=== PATIENT | male | born 1940 | race Caucasian/White ===

== ENCOUNTER 2018-10-28 09:21 | Emergency (ER) | payer MEDICARE, OTHER ==
[~2018-10-28] VITALS: Ht 185.4 cm; Wt 109.0 kg
[~2018-10-28 09:21] MED LIST: ALLOPURINOL100 MG PO; AMLODIPINE5 MG PO; CARVEDILOL25 MG PO; CITALOPRAM20 MG PO; CLOPIDOGREL75 MG PO; INDOCIN50 MG/CAP PO; LANTUS100 MG/ML SC; LISINOPRIL10 MG PO; LORTAB 5-325 MG1 TAB PO; LOSARTAN/HCT1 TA2 PO; OMEGA-3 FISH1000 MG PO; PROBENECID/COLC1 TAB PO
[2018-10-28] MEDS ORDERED: VOLTAREN1%GEL TOP (09:51)
[2018-10-28 10:18] VITALS: BP 136/93
== END 2018-10-28 10:18 | disposition home or self-care (01) ==
LOC: ED 09:21
DX: M25.562 Pain in left knee (principal); M17.12 Unilateral primary osteoarthritis, left knee

== ENCOUNTER 2018-12-02 09:27 | Emergency (ER) | payer MEDICARE, OTHER ==
[~2018-12-02] VITALS: Ht 185.4 cm; Wt 105.0 kg
[~2018-12-02 09:27] MED LIST changes: +VOLTAREN1%GEL TOP
[2018-12-02 10:16] LABS: HEMATOCRIT 45.6 % (39.0-50.0); HEMOGLOBIN 15.6 g/dl (14.0-18.0); IMMATURE GRANULOCYTES 0.5 % (0.0-5.0); MEAN CELL VOLUME 90.8 fL CALC (80.0-100.0); MEAN CORPUSCULAR HGB 31.1 pG CALC (26.0-32.0); MEAN CORPUSCULAR HGB CONC 34.2 g/L CALC (32.0-36.0); NEUT# 10.05 thou/uL (1.82-7.42); RED BLOOD COUNT 5.02 mill/uL (4.70-6.10); RED CELL DISTRI WIDTH 13.4 % (11.5-15.5)
[2018-12-02 10:28] LABS: ANION GAP 17 (6-22 (CALC)); BUN 23 mg/dL (8-23); BUN/CREATININE RATIO 26 (12-20 (CALC)); C-REACTIVE PROTEIN 7.7 mg/dL (0-0.9); CARBON DIOXIDE 23 mmol/l (22-30); CHLORIDE 100 mmol/l (95-108); CREATININE 0.9 mg/dL (0.7-1.3); GFR > 60 ML/MIN (>=60 (CALC)); GFR FOR AFR.AMER. > 60 ML/MIN (>=60 (CALC))
[2018-12-02 10:29] LABS: SODIUM 136 mmol/l (137-146)
[2018-12-02] MEDS ORDERED: CITALOPRAM40 MG PO (11:27)
[2018-12-02] MEDS ORDERED: LOSARTAN POT50 MG PO (11:34)
[2018-12-02] MEDS ORDERED: NOVOLIN N100 UNIT/1 SC (11:38)
[2018-12-02] MEDS ORDERED: TRESIBA FL200 UNIT/M SC (11:38)
[2018-12-02] MEDS ORDERED: COLCHICINE0.6 M2 PO ×2 (11:39)
[2018-12-02 11:48] VITALS: BP 137/95
== END 2018-12-02 11:48 | disposition home or self-care (01) ==
LOC: ED 09:27
PROVIDERS: Family Medicine
DX: M25.562 Pain in left knee (principal); E11.9 Type 2 diabetes mellitus without complications; I10 Essential (primary) hypertension; E78.00 Pure hypercholesterolemia, unspecified; M10.9 Gout, unspecified

== ENCOUNTER 2019-01-03 15:37 | Inpatient (IN) | payer MEDICARE, OTHER ==
[~2019-01-03] VITALS: Ht 185.4 cm; Wt 106.6 kg
[~2019-01-03 15:37] MED LIST changes: +CELEXA20 MG PO; +CITALOPRAM40 MG PO; +COLCHICINE0.6 M2 PO; +COREG12.5 MG PO; +LOSARTAN POT50 MG PO; +NOVOLIN N100 UNIT/1 SC; +TRESIBA FL200 UNIT/M SC; +VICTOZA18 MG/3 ML SC
[2019-01-10] VITALS (8 sets, daily range): BP systolic 115–140; BP diastolic 68–78
--- NOTE | 2019-01-10 14:45 | NUR ---
PT CAME FROM [place] VIA BED BY ALEXX. REPORT RECEIVED FROM HER. PT IS DROWSY. IN ROOM. IVF INFUSING WELL. PLASTIC MANAGER IN ROOM TO OBTAIN VS. CALL LIGHT IN REACH.
--- NOTE | 2019-01-10 15:04 | NUR ---
ASSESSMENT PART A ASSISTED WITH QUESTIONS DUE TO PT FEELS DROWSY. PT ABLE TO OPEN EYES. PT STATED PAIN IN LEFT KNEE /. LEFT KNEE DRESSING CDI . LEFT LEG ELEVATED. SCD IN PLACE. ENCOURAGE IS. SAFETY PRECAUTIONS REINFORCED AND CALL LIGHT IN REACH.
--- NOTE | 2019-01-10 19:30 | NUR ---
PATIENT RESTING IN BED AT THIS TIME WITH O2 VIA NASAL CANNULA IN PLACE. PATIENT IS AWAKE ALERT AND ORIENTEDX3. IV SITE TO LEFT WRIST INTACT WITH IVF LR PATENT AND INFUSING AT 100CC/HR. SITE APPEARS HEALTHY. ANCEF HUNG ORDERED. LEFT KNEE DRESSING INTACT AND SECURED WITH HALLE WRAP. SLIGHT LLE SWELLING. PEDAL PULSES PALPABLE. SCD IN PLACE. ENCOURAGED USE OF IS Q1H WHILE AWAKE. PATIENT IS ABLE TO DEMONSTRATE PROPER USE OF THE DEVICE. ABDIS DISTENDED BUT SOFT. BS ARE PRESENT. UNABLE TO VOID AT THIS TIME. USING ICE PACK TO LEFT KNEE ON AND OFF WITH SKIN INSPECTION. SAFETY PRECAUTIONS REINFORCED.CALL LIGHT IN REACH. WILL CONT TO MONITOR.
[2019-01-11] VITALS (7 sets, daily range): BP systolic 103–164; BP diastolic 65–96
--- NOTE | 2019-01-11 00:17 | NUR ---
PATIENT RESTING IN BED. VOIDED 150CC OF BLANCA URINE IN URINAL-STILL FEELS FULL AND IS DISTENDED-BLADDER SCAN FOR >999. #16 BENGALI MEJIA CATH INSERTED WITHOUT ANY DIFFICULTY AND DRAINING LARGE AMT OF YELLOW URINE. CLAMPED FOR 20MIN AND THEN RELEASED. PATIENT TURNED AND REPOSIONED. LEFT KNEE DRESSING REMAINS INTACT AND SECURED WITH HALLE WRAP. HOME C-PAP IN PLACE. PATIENT STATES RELIEF AFTER CATH PLACED. SAFETY PRECAUTIONS REINFORCED.CALL LIGHT IN REACH. WILL CONT TO MONITOR.
--- NOTE | 2019-01-11 04:00 | NUR ---
PATIENT RESTING IN BED WITH C-PAP IN PLACE. RESP ARE EVEN AND UNLABORED. IVF PATENT AND INFUSING VIA LEFT WRIST. SITE REMAINS HEALTHY AT THIS TIME. MEJIA CATH PATENT AND DRAINING YELLOW URINE. DRESSING TO LEFT KNEE REMAINS INTACT AND SECURED WITH HALLE WRAP. CALL LIGHT IN REACH. WILL CONT TO MONITOR.
[2019-01-11 05:18] LABS: HEMOGLOBIN 13.5 g/dl (14.0-18.0)
--- NOTE | 2019-01-11 07:00 | NUR ---
REPORT RECEIVED FROM DAREK. PT IS RESTING IN BED WITH NO S/S OF DISTRESS OR NEEDS AT THIS TIME. CALL LIGHT IN REACH.
--- NOTE | 2019-01-11 07:21 | NUR ---
MEDICATED PT WITH PERCOCET FOR PAIN LEFT KNEE 05/09 SEE EMAR. LEFT KNEE WARM TO THE TOUCH. LEFT KNEE DRESSING CDI. ICE PACK IN PLACE. ASSESSMENT DONE. ENCOURAGE IS. PT IS A&O X3. RESPS EVEN AND UNLABORED. O2L/M VIA NC. SAFETY PRECAUTIONS REINFORCED AND CALL LIGHT IN REACH.
--- NOTE | 2019-01-11 11:26 | NUR ---
DR. MCKEON AT [facility] TO ASSESS PT. NOTIFIED THAT PT BP WAS 153/86. MD STATED WILL REVIEW MEDS. IN ROOM AND CALL LIGHT IN REACH.
--- NOTE | 2019-01-11 14:18 | NUR ---
Pt resting in bed with family visiting, he had pain meds approx 20 min ago. Pt performed ther ex in bed to LLE with assist. He was initially in bed with pillows under knee and knee flexed approx 60 degrees. Pt was instructed in proper positioning and to change knee position often. Pt moved supine to sit with min/mod assist monie with LLE. Pt stood with min assist and ambulated with RW x 25' with CGA/min assist and vc for proper stepping. Pt positioned in recliner with legs elevated. Tray and phone in reach, present during treatment and nursing aware.
--- NOTE | 2019-01-11 15:00 | NUR ---
NOTIFIED DR. MCKEON RE: @1138 PT BP 164/96. STATED STILL HAS TO REVIEW CASE.
--- NOTE | 2019-01-11 16:00 | NUR ---
PT RESTING IN BED LEFT LEG ELEVATED. PT STATED PAIN IN LEG IS 4/10 BUT DENIES PAIN MEDICATION. IN ROOM. CALL LIGHT IN REACH.
--- NOTE | 2019-01-11 16:05 | NUR ---
PRUINE JIUCE GIVEN TO PT. IN ROOM. NOTIFIED THAT PT HAS NOT HAD A BM FOR A FEW DAYS. STATED WILL REVIEW.
--- NOTE | 2019-01-11 19:30 | NUR ---
PATIENT RESTING IN BED-AWAKE ALERT AND ORIENTEDX3. PATIENT C/O POST-OP LEFT KNEE PAIN. PATIENT MEDICATED WITH PERCOCET TABS 2. PATIENT WITH SALINE LOCK TO LEFT WRIST INTACT AND APPEARS HEALTHY AT THIS TIME. DRESSING TO LEFT KNEE INTACT-SECURED WITH HALLE WRAP. CMS TO LEFT TOES WNL. PATIENT ENCOURAGED USE OF IS Q1H WHILE AWAKE-ABLE TO DEMONSTRATE PROPER USE OF THE DEVICE. MEJIA CATH PATENT AND DRAINING BLANCA URINE0-SECURED TO RIGHT THIGH. SCD IN PLACE. ICE PACK TO LEFT KNEE ON AND OFF WITH FREQUENT SKIN INSPECTIONS. SAFETY PRECAUTIONS REINFORCED. CALL LIGHT IN REACH. WILL CONT TO MONITOR.
[2019-01-12] VITALS: BP 112/68
--- NOTE | 2019-01-12 04:00 | NUR ---
PATIENT RESTING IN BED WITH HOB ELEVATED AND C-PAP IN PLACE. RESP ARE EVEN AND UNLABORED. MEJIA PATENT AND DRAINING BLANCA URINE. DRESSING TO LEFT KNEE IS INTACT SECURED WITH HALLE WRAP. CALL LIGHT IN REACH. WILL CONT TO MONITOR.
[2019-01-12 05:01] VITALS: BP 112/69
[2019-01-12 05:55] LABS: HEMATOCRIT 37.3 % (39.0-50.0); HEMOGLOBIN 12.6 g/dl (14.0-18.0); IMMATURE GRANULOCYTES 0.5 % (0.0-5.0); MEAN CELL VOLUME 91.4 fL CALC (80.0-100.0); MEAN CORPUSCULAR HGB 30.9 pG CALC (26.0-32.0); MEAN CORPUSCULAR HGB CONC 33.8 g/L CALC (32.0-36.0); NEUT# 6.64 thou/uL (1.82-7.42); RED BLOOD COUNT 4.08 mill/uL (4.70-6.10); RED CELL DISTRI WIDTH 13.7 % (11.5-15.5)
[2019-01-12 06:17] LABS: ALKALINE PHOSPHATASE 68 u/l (38-126); AMYLASE 88 u/l (30-110); ANION GAP 12 (6-22 (CALC)); BILIRUBIN, TOTAL 1.5 mg/dL (0.0-1.4); BUN 20 mg/dL (8-23); BUN/CREATININE RATIO 18 (12-20 (CALC)); CARBON DIOXIDE 27 mmol/l (22-30); CHLORIDE 100 mmol/l (95-108); CREATININE 1.1 mg/dL (0.7-1.3); GFR > 60 ML/MIN (>=60 (CALC)); GFR FOR AFR.AMER. > 60 ML/MIN (>=60 (CALC)); LIPASE 386 u/l (23-300); MAGNESIUM 1.1 mg/dL (1.6-2.3); POTASSIUM 3.9 mmol/l (3.5-5.1); SGOT/AST 16 u/l (19-48); SODIUM 136 mmol/l (137-146)
[2019-01-12 06:19] LABS: ALBUMIN 3.3 g/dL (3.2-5.0); TOTAL PROTEIN 5.7 g/dL (6.3-8.2)
--- NOTE | 2019-01-12 07:33 | NUR ---
SHIFT REPORT, PT AWAKE AND ALERT SITTING UP IN BED, C/O PAIN TO LEFT KNEE @ 7/10, DRESSING TO KNEE IN PLACE AND CDI, MEJIA CATHETER IN PLACE WITH BLANCA URINE, CALL DUARTE IN REACH.
[2019-01-12 08:49] VITALS: BP 134/77
--- NOTE | 2019-01-12 11:18 | NUR ---
SITTING UP IN RECLINER, STATES PAIN TO L.KNEE HAS SUBSIDED, PT IS DIAPHORETIC AT THIS TIME, BG MEASURED = 154, NO FEVER OBSERVED, NO C/O DISCOMFORT, WILL CONTINUE TO MONITOR, SPOUSE VISITING.
--- NOTE | 2019-01-12 12:45 | NUR ---
PATIENT IN BED WITH BED POSITIONED IN HIP/KNEE FLXN. ONLY ABLE TO PERFORM ANKLE PUMPS ACTIVELY. PROM OF LEFT KNEE 40-50 DEGREES IN SUPINE. MAX A AT L LE FOR SUPINE TO SIT. SITTING KNEE FLXN PASSIVELY 35-70 DEGREES GROSSLY. SIT TO STAND TO WALKER WITH MOD A FOR GT BED TO CHAIR WITH MOD A. ABLE TO LIFT L FOOT OFF OF FLOOR TODAY, BUT REQUIRED CONSTANT V.C.'S FOR SAFETY AND SEQUENCING. AMB 4 FEET TO CHAIR, SLOWLY WITH WBAT L LE. STAND TO SIT IN RECLINER WITH MIN A AND V.C.'S. HE WAS UNABLE TO LOWER HIMSELF SLOWLY AND PLOPPED INTO CHAIR. RESUMED PROM AND ATTEMPTING QUAD SET AGAIN WITH CHAIR RECLINED. PATIENT WITHOUT SIGNIFICANT QUAD SET AND UNABLE TO PERFORM EVEN AAROM. CALL DUARTE AND TRAY TABLE WITHIN REACH. DEMONSTRATED PROPER TRANSFER TECHNIQUES WITH L LE FORWARD TO DECREASE PAIN DURING SIT TO/FROM STAND.
--- NOTE | 2019-01-12 12:52 | NUR ---
SITTING UP IN RECLINER AT THIS TIME, DR LINDA HENDERSON, KEN TO KEEP 1 MORE NIGHT THEN D/C TO REHAB TOMORROW, ALSO UROLOGY CONSULT FOR URINARY RETENTION.
--- NOTE | 2019-01-12 14:06 | NUR ---
Pt reported being OOB in chair since this am and was tried. Sitting knee exercise with A/AAROM and passive HS stretch done (gentle). Pt required max assist ot stand from chair, he had difficulty scooting forward in chair and did not lean forward with trunk to stand. Pt ambulated with RW x 25 with mod assist, he was slightly retropulsive and use step two gait pattern.Pt return to bed and was positioned correctly. Knee flexion ext remains decrease, flexion approx 70 in sitting. Pt left with call vicente/tray in place and SCD on. Pt in room.
[2019-01-12 16:00] VITALS: BP 142/90
--- NOTE | 2019-01-12 16:00 | NUR ---
RESTING IN BED AT THIS TIME, DENY PAIN, WILL CONTINUE TO MONITOR.
[2019-01-12 19:10] VITALS: BP 146/85
--- NOTE | 2019-01-12 20:19 | NUR ---
PT MEDICATED ORDERS PROVIDE. PT LOC TO SELF, AND STATES THAT HE IS IN THE HOSPITAL, BUT APPEARS TO BE SLIGHTLY CONFUSED ABOUT TIME/CIRCUMSTANCES. HE KEEPS ASKING WHERE HIS IS. WE EXPLAIN SHE HAS LEFT AND HE ASKS AGAIN, "HAVE YOU SEEN MY ." BED ALARM ON, WILL CONTINUE TO MONITOR. MEJIA CATHETER IN PLACE PATENT DRAINING BLOOD TINGED URINE. PT DENIES PAIN, SOB, NO S/O DISTRESS AT THIS TIME. CALL LIGHT AT SIDE.
--- NOTE | 2019-01-13 00:25 | NUR ---
PT.IS IN BED AWAKE, NO S/O DISTRESS AT THIS TIME. CALL LIGHT AT SIDE. BED ALARM ON.
[2019-01-13 04:03] VITALS: BP 138/84
--- NOTE | 2019-01-13 04:40 | NUR ---
PT C/O NAUSEA. REFUSED IV SITE FOR ZOFRAN ADMINISTRATION. WILL CONSULT PHYSICIAN FOR PO ZOFRAN. PT PROVIDED EMESIS BAG, REPOSITIONED AND KNEE ICED W/ICE PACKS. DENIES ANY OTHER NEEDS AT THIS TIME. C/O PAIN 03/09, BUT REFUSED PAIN PILL DUE TO NAUSEA. WILL CONTINUE TO MONITOR. CALL LIGHT AT SIDE.
[2019-01-13 05:56] LABS: HEMATOCRIT 32.4 % (39.0-50.0); HEMOGLOBIN 11.3 g/dl (14.0-18.0); IMMATURE GRANULOCYTES 0.4 % (0.0-5.0); MEAN CELL VOLUME 88.5 fL CALC (80.0-100.0); MEAN CORPUSCULAR HGB 30.9 pG CALC (26.0-32.0); MEAN CORPUSCULAR HGB CONC 34.9 g/L CALC (32.0-36.0); NEUT# 7.64 thou/uL (1.82-7.42); RED BLOOD COUNT 3.66 mill/uL (4.70-6.10); RED CELL DISTRI WIDTH 13.4 % (11.5-15.5)
[2019-01-13 06:12] LABS: ALKALINE PHOSPHATASE 67 u/l (38-126); ANION GAP 15 (6-22 (CALC)); BILIRUBIN, TOTAL 1.3 mg/dL (0.0-1.4); BUN 18 mg/dL (8-23); BUN/CREATININE RATIO 21 (12-20 (CALC)); CARBON DIOXIDE 23 mmol/l (22-30); CHLORIDE 100 mmol/l (95-108); CREATININE 0.9 mg/dL (0.7-1.3); GFR > 60 ML/MIN (>=60 (CALC)); GFR FOR AFR.AMER. > 60 ML/MIN (>=60 (CALC)); MAGNESIUM 1.1 mg/dL (1.6-2.3); POTASSIUM 3.7 mmol/l (3.5-5.1); SGOT/AST 17 u/l (19-48); SODIUM 134 mmol/l (137-146); TOTAL PROTEIN 5.5 g/dL (6.3-8.2)
[2019-01-13 07:49] VITALS: BP 168/89
--- NOTE | 2019-01-13 07:55 | NUR ---
MEDICATED PT WITH PERCOCET SEE EMAR. ASSESSMENT DONE. REPS EVEN AND UNLABORED. PT HAS NO IV SITE . LEFT LEG IS WARM TO THE TOUCH. MEJIA IS PATENT WITH BLANCA URINE. DISCUSS POC WITH PT AND . CALL LIGHT IN REACH.
--- NOTE | 2019-01-13 09:53 | NUR ---
PATIENT STATES THAT HIS RIGHT LEG IS SORE TODAY (NONO-SURGICAL LE). HE HAS BEEN TRYING TO WORK HIS LEFT KNEE ROM AND WAS UP IN THE CHAIR FOR 5 HOURS YESTERDAY. SIT TO STAND UNSUCCESSFUL X 2 WITH A OF 1. BED RAISED ANAD MOD A OF 2 FOR SIT TO STAND TO RW. ABLE TO AMB BED TO BSC WITH CGA OF 2 AND MIN A AT L LE TO MAINTAIN LESS WB'G WITH TRANSFERS. BSC TO STAND WITH MOD A OF 1 AND AMB 16 FEET WITH CGA AND V.C.'S FOR FOOT PLACEMENT. STAND TO SIT WITH MIN A AT L LE FOR CONTROLLED DECREASE OF WB'G WITH IMPROVED GRADED CONTROL. PROM, AAROM AND AROM OF L KNEE. PROM 20 TO 65, AROM 35 TO 55 DEGREES. CALL DUARTE AND TRAY TABLE WITHIN REACH.
--- NOTE | 2019-01-13 11:59 | NUR ---
PT IS EATING HIS LUNCH. PT STATED PAIN NOW ON HIS LEG KNEE 03/09 BUT DENIES PAIN MEDICATION AT THIS TIME. IN ROOM. CALL LIGHT IN REACH.
--- NOTE | 2019-01-13 16:00 | NUR ---
PT IS SITTING IN RECLINER . PT DENIES NEEDS AT THIS TIME. IN ROOM AND CALL LIGHT IN REACH.
--- NOTE | 2019-01-13 16:33 | NUR ---
Therapeutc Exercise and gait traing focus of therapy session. Enterd Mr. Garza room w/ patient supine in bed. Pt. unable to get knee extension w/ quad setting. VC to keep pushing knee to bed. Active Assisted ROM for heel slides w/ towel held by patient, Therapist (Max A). Supine to sit (Max A.) to swing legs off of bedside. Sit to stand (Mod A) ambulated from bedside to chair (Min A). Stand to sit (Mod A) w/ VC for proper techique to retro walk to [facility], proper hand placement as pt. descends to a seated position. Exited room w/ patient reclined in chair, pillow behind head and leg rest open, tray table and call light placed within patient reach. Nurse informed of therapy.
[2019-01-13 17:14] VITALS: BP 124/78
[2019-01-13 19:00] VITALS: BP 113/65
--- NOTE | 2019-01-13 19:45 | NUR ---
REPORT GIVEN BY KAREN MCCONNELL. PATIENT AWAKE IN BED. RESP EVEN AND UNLABORED. NO S/S DISTRESS NOTED. DRESSING INTACT. PLAN OF CARE DISCUSSED. PATIENT INFORMED TO CALL WITH ANY QUESTIONS OR CONCERNS. ASSESSMENT COMPLETE.
--- NOTE | 2019-01-13 22:02 | NUR ---
PATIENT ASKED TO USE BSC.FOR HIS SAFTEY WE USED THE BEDPAN. PATIENT STATES THAT THE BEDPAN ISN'T WORKING FOR HIM. WHEN ASKED IF HE CAN SUPPORT HIS WEIGHT WITH HIS GOOD LEG HE STATED THAT HE CAN'T, FOR THE SAFTEY OF THE PATIENT AND STAFF WE WILL CONTIUNE TO TRY TO USE THE BEDPAN.
--- NOTE | 2019-01-13 23:43 | NUR ---
PATIENT HAS NO IV SITE. PATIENT CURRENTLY REFUSING TO HAVE A NEW IV STARTED.
--- NOTE | 2019-01-13 23:46 | NUR ---
PATIENT RESTING WITH EYES CLOSED. RESP EVEN AND UNABLORED. NO S/S OF DISTRESS NOTED.
--- NOTE | 2019-01-14 03:59 | NUR ---
PATIENT RESTING WITH EYES CLOSED. RESP EVEN AND UNLABORED. NO S/S OF DISTRESS NOTED
[2019-01-14 04:23] VITALS: BP 141/85
--- NOTE | 2019-01-14 07:33 | NUR ---
SHIFT CHANGE REPORT, PT AWAKE ALERT AND ORIENTED SITTING UP IN BED WATCHING TV, DENIES PAIN AT THIS TIME, MEJIA IN PLACE WITH BLANCA URINE, CALL DUARTE IN REACH.
[2019-01-14 07:36] VITALS: BP 127/77
[2019-01-14 09:34] VITALS: BP 127/77
--- NOTE | 2019-01-14 11:02 | NUR ---
Pt in bed with nursing present, he just got pain meds. AAROM to BLEs done. Pt reported R knee was bad with pain reported. Knee ext on L in supine after gentle stretch approx -15 degrees. Knee flex/ext in sitting on edge of bed, flexion to 60-70 degrees. Pt moved supine to sit with mod/max assist of LLE and mod assist to move upper body to full sitting. Sit to stand with mod/max assist x1. Pt ambulated x 25' with RW, he had step two gait pattern and tends to walk too close to walker. A/AAROM perrformed again in chair. Pt positioned with legs elevated, heel off loaded, call vicente tray in reach and present.
[2019-01-14] MEDS ORDERED: TAMSULOSIN HCL0.4 MG PO (13:50)
[2019-01-14] MEDS ORDERED: TRAMADOL HCL50 MG PO (13:51)
--- NOTE | 2019-01-14 14:39 | NUR ---
Discharge instructions given. Patient verbalizes understanding of same. Discharged in stable condition via Wheelchair to [facility] with spouse. All belongings sent with pt.
== END 2019-01-14 14:39 | DRG 470 ==
LOC: MS2 01-10 07:30
PROVIDERS: ADMIT Orthopaedic Surgery; ATTEND Internal Medicine Nephrology
PROC: 0SRD0J9 Replacement of Left Knee Joint with Synthetic Substitute, Cemented, Open Approach (ICD-10-PCS; principal; 2019-01-10)
PROC: 0T9B70Z Drainage of Bladder with Drainage Device, Via Natural or Artificial Opening (ICD-10-PCS; 2019-01-11)
DX: M17.12 Unilateral primary osteoarthritis, left knee (principal); I10 Essential (primary) hypertension; E11.9 Type 2 diabetes mellitus without complications; E78.5 Hyperlipidemia, unspecified; I25.10 Atherosclerotic heart disease of native coronary artery without angina pectoris; N40.1 Benign prostatic hyperplasia with lower urinary tract symptoms; R33.8 Other retention of urine; K59.00 Constipation, unspecified; Z79.4 Long term (current) use of insulin; Z79.02 Long term (current) use of antithrombotics/antiplatelets; Z95.5 Presence of coronary angioplasty implant and graft
CPT/HCPCS: J0131; J1650; J2270; J2710

== ENCOUNTER 2019-01-16 10:55 | Emergency (ER) | payer MEDICARE, OTHER ==
[~2019-01-16] VITALS: Ht 185.4 cm; Wt 109.0 kg
[~2019-01-16 10:55] MED LIST changes: -COZAAR50 MG PO; -DOXYCYCL HYC100 MG PO; -Levaquin PO; -PIPERACILLIN IV; -PLAVIX75 MG PO; -POTASSIMIN75 MG PO; -TAZOBACTAM IV; -VANCOMYCIN1000 MG IV
[2019-01-16 11:32] LABS: HEMATOCRIT 36.3 % (39.0-50.0); IMMATURE GRANULOCYTES 0.7 % (0.0-5.0); MEAN CELL VOLUME 91.9 fL CALC (80.0-100.0); MEAN CORPUSCULAR HGB 30.4 pG CALC (26.0-32.0); MEAN CORPUSCULAR HGB CONC 33.1 g/L CALC (32.0-36.0); NEUT# 8.87 thou/uL (1.82-7.42); RED BLOOD COUNT 3.95 mill/uL (4.70-6.10); RED CELL DISTRI WIDTH 14.1 % (11.5-15.5)
[2019-01-16 11:51] LABS: ANION GAP 17 (6-22 (CALC)); BUN 25 mg/dL (8-23); BUN/CREATININE RATIO 25 (12-20 (CALC)); CARBON DIOXIDE 24 mmol/l (22-30); CHLORIDE 98 mmol/l (95-108); GFR > 60 ML/MIN (>=60 (CALC)); GFR FOR AFR.AMER. > 60 ML/MIN (>=60 (CALC)); POTASSIUM 3.6 mmol/l (3.5-5.1); SODIUM 136 mmol/l (137-146)
[2019-01-16 11:58] LABS: URINE BLOOD DIPSTICK SMALL (NEGATIVE); URINE COLOR YELLOW; URINE GLUCOSE - DIPSTICK 100 mg/dL (NEGATIVE); URINE KETONE TRACE mg/dL (NEGATIVE); URINE LEUK ESTERASE NEGATIVE (NEGATIVE); URINE PROTEIN - DIPSTICK 30 mg/dL (NEG-TRACE); URINE SPECIFIC GRAVITY 1.025
[2019-01-16 11:59] LABS: URINE BILIRUBIN - DIPSTICK MODERATE (NEGATIVE); URINE NITRITE - DIPSTICK POSITIVE (Negative)
[2019-01-16 12:08] LABS: C-REACTIVE PROTEIN 18.6 mg/dL (0-0.9)
[2019-01-16 12:29] LABS: URINE BACTERIA FEW hpf; URINE SQUAMOUS EPITHELIAL CELL FEW EPI/hpf (0-FEW)
[2019-01-16] MEDS ORDERED: COZAAR50 MG PO (12:42)
[2019-01-16] MEDS ORDERED: PLAVIX75 MG PO (12:42)
[2019-01-16 15:38] VITALS: BP 123/77
== END 2019-01-16 15:47 | disposition home or self-care (01) ==
LOC: ED 10:55
PROVIDERS: Family Medicine
DX: T81.41XA Infection following a procedure, superficial incisional surgical site, initial encounter (principal); L03.116 Cellulitis of left lower limb; E11.9 Type 2 diabetes mellitus without complications; I10 Essential (primary) hypertension; E78.00 Pure hypercholesterolemia, unspecified; Z95.5 Presence of coronary angioplasty implant and graft; Y83.1 Surgical operation with implant of artificial internal device as the cause of abnormal reaction of the patient, or of later complication, without mention of misadventure at the time of the procedure; Z96.652 Presence of left artificial knee joint; M25.562 Pain in left knee; M25.462 Effusion, left knee
CPT/HCPCS: Q9967

== ENCOUNTER → 2019-01-16 | Outpatient (REF) | payer OTHER ==
[~2019-01-16] MED LIST changes: +COZAAR50 MG PO; +DOXYCYCL HYC100 MG PO; +Levaquin PO; +PIPERACILLIN IV; +PLAVIX75 MG PO; +POTASSIMIN75 MG PO; +TAMSULOSIN HCL0.4 MG PO; +TAZOBACTAM IV; +TRAMADOL HCL50 MG PO; +VANCOMYCIN1000 MG IV
[2019-01-16 10:47] LABS: HEMATOCRIT 34.2 % (39.0-50.0); HEMOGLOBIN 11.5 g/dl (14.0-18.0); IMMATURE GRANULOCYTES 0.6 % (0.0-5.0); MEAN CELL VOLUME 91.4 fL CALC (80.0-100.0); MEAN CORPUSCULAR HGB 30.7 pG CALC (26.0-32.0); MEAN CORPUSCULAR HGB CONC 33.6 g/L CALC (32.0-36.0); NEUT# 8.79 thou/uL (1.82-7.42); RED BLOOD COUNT 3.74 mill/uL (4.70-6.10)
[2019-01-16 11:05] LABS: ALBUMIN 3.5 g/dL (3.2-5.0); ALKALINE PHOSPHATASE 87 u/l (38-126); ANION GAP 18 (6-22 (CALC)); BILIRUBIN, TOTAL 1.6 mg/dL (0.0-1.4); BUN 24 mg/dL (8-23); BUN/CREATININE RATIO 26 (12-20 (CALC)); CARBON DIOXIDE 24 mmol/l (22-30); CHLORIDE 98 mmol/l (95-108); CREATININE 0.9 mg/dL (0.7-1.3); GFR > 60 ML/MIN (>=60 (CALC)); GFR FOR AFR.AMER. > 60 ML/MIN (>=60 (CALC)); POTASSIUM 3.8 mmol/l (3.5-5.1); SGOT/AST 20 u/l (19-48); SODIUM 137 mmol/l (137-146); TOTAL PROTEIN 6.3 g/dL (6.3-8.2)
== END | disposition home or self-care (01) | DRG 639 ==
LOC: LABREF 10:21
PROVIDERS: ATTEND Internal Medicine
DX: E11.9 Type 2 diabetes mellitus without complications (principal); I10 Essential (primary) hypertension; L53.9 Erythematous condition, unspecified; M79.89 Other specified soft tissue disorders; Z96.652 Presence of left artificial knee joint

== ENCOUNTER 2019-01-18 18:12 | Inpatient (IN) | payer MEDICARE, OTHER ==
[~2019-01-18] VITALS: Ht 185.4 cm; Wt 100.0 kg
[~2019-01-18 18:12] MED LIST changes: +COZAAR50 MG PO; +PLAVIX75 MG PO
--- NOTE | 2019-01-18 18:20 | NUR ---
TO TX ROOM VIA W/C
[2019-01-18] MEDS ORDERED: TAMSULOSIN HCL0.4 MG PO (18:48)
[2019-01-18] MEDS ORDERED: VICTOZA18 MG/3 ML SC (18:49)
[2019-01-18] MEDS ORDERED: DOXYCYCL HYC100 MG PO (18:51)
[2019-01-18 19:00] LABS: HEMOGLOBIN 10.9 g/dl (14.0-18.0); IMMATURE GRANULOCYTES 0.7 % (0.0-5.0); MEAN CELL VOLUME 92.4 fL CALC (80.0-100.0); MEAN CORPUSCULAR HGB 30.5 pG CALC (26.0-32.0); NEUT# 8.32 thou/uL (1.82-7.42); RED BLOOD COUNT 3.57 mill/uL (4.70-6.10); RED CELL DISTRI WIDTH 13.9 % (11.5-15.5)
--- NOTE | 2019-01-18 19:00 | NUR ---
PT STATES DR. SCHULTE OPERATED ON KNEE ON 01/10/19 HERE AT [facility], THEN PT WAS SENT TO REHAB AFTER BEING DISCHARGED.
--- NOTE | 2019-01-18 19:10 | NUR ---
PT WAS SEEN IN ER ON THE FOR SAME COMPLAINT OF REDNESS AND SORENESS TO LEFT KNEE IN AREA OF SURGERY. PT SENT BACK TO REHAB AND WAS PLACED ON DOXYCLINE. PT SENT BACK TO ER TODAY FOR EVALUATION OF REDNESS SPREADING.
[2019-01-18 19:16] LABS: ALBUMIN 3.2 g/dL (3.2-5.0); ALKALINE PHOSPHATASE 115 u/l (38-126); ANION GAP 16 (6-22 (CALC)); BILIRUBIN, TOTAL 1.8 mg/dL (0.0-1.4); BUN 25 mg/dL (8-23); BUN/CREATININE RATIO 30 (12-20 (CALC)); CARBON DIOXIDE 25 mmol/l (22-30); CHLORIDE 98 mmol/l (95-108); CREATININE 0.8 mg/dL (0.7-1.3); GFR > 60 ML/MIN (>=60 (CALC)); GFR FOR AFR.AMER. > 60 ML/MIN (>=60 (CALC)); POTASSIUM 4.2 mmol/l (3.5-5.1); SGOT/AST 26 u/l (19-48); SODIUM 134 mmol/l (137-146); TOTAL PROTEIN 6.1 g/dL (6.3-8.2)
--- NOTE | 2019-01-18 19:49 | NUR ---
IV ANTIBODICS INFUSING.
--- NOTE | 2019-01-18 20:45 | NUR ---
150CC URINE OUTPUT FROM MEJIA BEFORE TAKING PT TO MED SURG. REPORT GIVEN AND PT TAKEN BY EVAER TO MED SURG WITH BRING W/C THAT CAME FROM [facility]
--- NOTE | 2019-01-18 21:05 | NUR ---
PT ARRIVED TO THE FLOOR VIA STRETCHER ACCOMPANIED BY ER STAFF AND PT . PT TRANSFERED FROM STRETCHER TO BED X4 PERSON ASSIST. VS OBTAINED BY TIER LIFT TRUCK OPERATOR. ASSESSMENT COMPLETED. RESPIRATIONS EVEN AND UNLABORED ON RA, LUNGS SOUND CLEAR. IV # 20 LFA, APPEARS HEALTHY. PT REPORTS PAIN OF 2 OUT OF 10 ON THE PAIN SCALE, PT OFFERED COOL PACK. SURGICAL INCISION TO LEFT KNEE DERMABOND IN PLACE CDI, BRUISING AROUND THE KNEE, REDDNESS FROM ABOVE THE KNEE TO MID CALF, WARM TO TOUCH, 2+ EDEMA NOTED. OPEN AREA NOTED ON RT BUTTOCKS WITH DUODERM IN PLACE DRESSING REMOVED PHOTO DOCUMENTATION OBTAINED NEW DUODERM APPLIED. DFOLEY DRAINING TO GRAVITY. PT ORIENTED TO ROOM AND CALL DUARTE SYSTEM. SAFETY PRECAUTIONS IN PLACE. WILL CONTINUE TO MONITOR.
[2019-01-18 21:10] VITALS: BP 146/84
--- NOTE | 2019-01-19 00:36 | NUR ---
PT SLEEPING IN BED. ZOSYN HUNG AND INFUSING THROUGH IV 20 LFA, APPEARS HEALTHY. NO SIGNS OR SYMPTOMS OF DISTRESS. SAFETY PRECAUTIONS IN PLACE. WILL CONTINUE TO MONITOR.
--- NOTE | 2019-01-19 03:56 | NUR ---
PT RESTING IN BED, LOOKING AT HIS CELL PHONE. NO SIGNS OR SYMPTOMS OF DISTRESS. SAFETY PRECAUTIONS IN PLACE. WILL CONTINUE TO MONITOR.
[2019-01-19 04:30] VITALS: BP 125/69
--- NOTE | 2019-01-19 07:30 | NUR ---
REPORT RECEIVED FROM ENEDINA HOLLOWAY. PT ASSISTED TO SITTING POSITION IN BED. LROM LEFT LEG R/T POST-OP/EDEMA. FALL PRECAUTIONS REINFORCED. BED ALARM SET FOR SAFETY. PLAN OF CARE DISCUSSED. CALL LIGHT REVIEWED AND IN REACH. MEJIA DRAINING DARK YELLOW URINE. PT REPORTS BEING UNSURE OF REASON FOR INSERTION AT REHAB.
[2019-01-19 08:13] VITALS: BP 133/73
--- NOTE | 2019-01-19 12:12 | NUR ---
DR. MCKEON IN TO SEE PT. PLAN OF CARE UPDATED.
--- NOTE | 2019-01-19 12:33 | NUR ---
S: CHRIS SOMMER is a 78 M who presents with CELLULITIS. He has a history of HTN, DM, Hyperlipidemia . All medications in patient's chart were reviewed. O: VS: BP 133/73, P 97, RR20,T 96.5 W 99 kg, HT 73 IN, Scr= 0.8 ,CrCl= 80 ml/min> A: Blood culture is pending Urine culture is pending P: Patient is on ZOSYN AND VANCOMYCIN . Vancomycin ordered for pharmacy to dose. Start Vancomycin 1 GRAM IV Q8H. Vancomycin trough is drawn before the 5th dose on 01/19/19 AT 1330. Vancomycin goal trough is between 10-15 mcg/ml. Pharmacy will follow and or advise on antibiotics use as needed. DELL JACOBS PHARMD
[2019-01-19 13:55] VITALS: BP 141/78
--- NOTE | 2019-01-19 14:03 | NUR ---
1330-MEJIA CATHETER REMOVED PER PROTOCOL BY LEARNING CONSULTANT STUDENT ENEDINA GARCIA ATTENDING AT BEDSIDE. PT VERBALIZED COMFORT. PT TOLERATED WELL. 10ML NORMAL SALINE REMOVED THE CATHETER. PT STABLE LYING IN BED. CALL LIGHT AND PHONE WITHIN REACH. WILL CONTINUE TO MONITOR. 1345-16 FR MEJIA PLACED PER PROTOCOL.LEARNING CONSULTANT STUDENT [place] PLACED CATHETER, ENEDINA GASCA ATTENDING AT [facility]. PT VERBALIZED COMFORT. PT TOLERATED WELL. 10ML NORMAL SALINE PLACED IN CATHETER TUBING. 100ML CLEAR PALE YELLOW URINE RETURN IN CATHETER BAG. PT VERBALIZED UNDERSTANDING. PT LYING IN BED STABLE. CALL LIGHT AND PHONE WITHIN REACH. WILL CONTINUE TO MONITOR.
--- NOTE | 2019-01-19 16:00 | NUR ---
ATTEMPTED TO GET PT UP TO WC FOR US ORDERED; PT REFUSED ASSISTANCE FROM THIS NURSE AND Filomena YOON LPN; PT REQUESTING PHYSICAL THERAPIST TO ASSIST WITH TX; CALL PLACE TO ROGER PT DIRECTOR; ROGER UP TO ASSIST PT TO AND TO US VIA
--- NOTE | 2019-01-19 16:43 | NUR ---
ATTEMPTED P.T. EVAL. PATIENT IS OFF THE FLOOR FOR IMAGING. WILL F/U IN THE AM.
--- NOTE | 2019-01-19 16:44 | NUR ---
PT RETURN FROM IS VIA WC ACCOMPANIED BY ROGER, PHYSICAL THERAPIST; FAMILY AT BEDSIDE; CALL DUARTE WITHIN REACH; WILL CONTINUE TO MONITOR
--- NOTE | 2019-01-19 17:40 | NUR ---
REPORT RECIEVED FROM ENEDINA BENJAMIN. PT RESTING IN BED. NO SIGNS OR SYMPTOMS OF DISTRESS. SAFETY PRECAUTIONS IN PLACE. WILL CONTINUE TO MONITOR.
[2019-01-19 19:45] VITALS: BP 127/74
--- NOTE | 2019-01-20 01:11 | NUR ---
PT RESTING IN BED WITH EYES CLOSED. RESPIRATIONS EVEN AND UNLABORED. SAFETY PRECAUTIONS IN PLACE. WILL CONTINUE TO MONITOR.
--- NOTE | 2019-01-20 04:05 | NUR ---
PT RESTING IN BED WITH EYES CLOSED. RESPIRATIONS EVEN AND UNLABORED ON RA. SAFETY PRECAUTIONS IN PLACE. WILL CONTINUE TO MONITOR.
[2019-01-20 04:45] VITALS: BP 117/64
[2019-01-20 05:19] LABS: HEMATOCRIT 27.8 % (39.0-50.0); IMMATURE GRANULOCYTES 0.7 % (0.0-5.0); MEAN CELL VOLUME 93.6 fL CALC (80.0-100.0); MEAN CORPUSCULAR HGB 30.3 pG CALC (26.0-32.0); MEAN CORPUSCULAR HGB CONC 32.4 g/L CALC (32.0-36.0); NEUT# 5.14 thou/uL (1.82-7.42); RED BLOOD COUNT 2.97 mill/uL (4.70-6.10); RED CELL DISTRI WIDTH 13.4 % (11.5-15.5)
[2019-01-20 05:36] LABS: ALBUMIN 2.6 g/dL (3.2-5.0); ALKALINE PHOSPHATASE 111 u/l (38-126); AMYLASE 121 u/l (30-110); ANION GAP 13 (6-22 (CALC)); BILIRUBIN, TOTAL 1.5 mg/dL (0.0-1.4); BUN 18 mg/dL (8-23); BUN/CREATININE RATIO 21 (12-20 (CALC)); CARBON DIOXIDE 26 mmol/l (22-30); CHLORIDE 102 mmol/l (95-108); CREATININE 0.8 mg/dL (0.7-1.3); GFR > 60 ML/MIN (>=60 (CALC)); GFR FOR AFR.AMER. > 60 ML/MIN (>=60 (CALC)); LIPASE 757 u/l (23-300); POTASSIUM 3.8 mmol/l (3.5-5.1); SGOT/AST 25 u/l (19-48); SODIUM 137 mmol/l (137-146); TOTAL PROTEIN 5.1 g/dL (6.3-8.2)
[2019-01-20 05:37] LABS: MAGNESIUM 1.4 mg/dL (1.6-2.3)
--- NOTE | 2019-01-20 07:29 | NUR ---
REPORT RECEIVED FROM ENEDINA HOLLOWAY. PT SITTING IN CHAIR AT BEDSIDE. PRESENT. PT DENIES PAIN AT THIS TIME. REPORTING OF CONCERNS AND PAIN MEDICATIONS REVIEWED. CALL LIGHT REVIEWED AND IN REACH. PLAN OF CARE DISCUSSED. LEFT KNEE REDNESS LESSENED FROM YESTERDAYS ASSESSMENT, BUT STILL REDDENED AND BRUISED.
[2019-01-20 07:46] VITALS: BP 117/63
--- NOTE | 2019-01-20 12:00 | NUR ---
DR. CULVER IN TO SEE PT. PLAN OF CARE AND DISCHARGE BACK TO REHAB DISCUSSED AND AGREED UPON.
[2019-01-20] MEDS ORDERED: VANCOMYCIN1000 MG IV (13:04)
[2019-01-20] MEDS ORDERED: PIPERACILLIN IV (13:06)
[2019-01-20] MEDS ORDERED: TAZOBACTAM IV (13:06)
--- NOTE | 2019-01-20 14:20 | NUR ---
PATIENT WILL BE DISCHARGED TODAY FOR REHAB. WENT TO LINE INSTALLER AND ANSWER ANY POTENTIAL QUESTIONS PATIENT MAY HAVE ABOUT HIS DISCHARGE MEDICATIONS. SAID HE HAS BEEN ON THOSE MEDICATIONS FOR MANY YEARS AND KNOWS EVERYTHING ABOUT THEM. PATIENT ALSO SAID HE DOES NOT HAVE ANY QUESTIONS. ASKED ABOUT HIS KNEE AND PATIENT RESPONDED THAT IT'S DOING FINE AND RATED HIS PAIN A 3/10 ON THE PAIN SCALE. PATIENT WAS TOLD TO CALL THE PHARMACY SHOULD HE HAVE ANY FURTHER QUESTIONS OR CONCERNS ABOUT HIS MEDICATIONS.
[2019-01-20 15:48] VITALS: BP 114/65
--- NOTE | 2019-01-20 17:28 | NUR ---
Discharge instructions given. Patient verbalizes understanding of same. Discharged in stable condition via Wheelchair to [facility] with staff. All belongings sent with pt.
== END 2019-01-20 17:15 | DRG 863 ==
LOC: ED 18:12 → ED-I 19:38 → ED 19:56 → MS2 19:57
PROVIDERS: Emergency Medicine; ADMIT Internal Medicine; ATTEND Internal Medicine Nephrology
DX: T81.40XA Infection following a procedure, unspecified, initial encounter (principal); L03.116 Cellulitis of left lower limb; E11.9 Type 2 diabetes mellitus without complications; I10 Essential (primary) hypertension; I25.10 Atherosclerotic heart disease of native coronary artery without angina pectoris; F41.1 Generalized anxiety disorder; F32.9 Major depressive disorder, single episode, unspecified; N40.1 Benign prostatic hyperplasia with lower urinary tract symptoms; R33.8 Other retention of urine; E78.5 Hyperlipidemia, unspecified; Y83.1 Surgical operation with implant of artificial internal device as the cause of abnormal reaction of the patient, or of later complication, without mention of misadventure at the time of the procedure; Z96.652 Presence of left artificial knee joint; Z95.5 Presence of coronary angioplasty implant and graft; L53.9 Erythematous condition, unspecified; M79.89 Other specified soft tissue disorders; T81.41XA Infection following a procedure, superficial incisional surgical site, initial encounter; E78.00 Pure hypercholesterolemia, unspecified; M25.562 Pain in left knee; M25.462 Effusion, left knee
CPT/HCPCS: G0378; J1650; Q9967

== ENCOUNTER → 2019-01-21 | Outpatient (REF) | payer OTHER ==
[~2019-01-21] MED LIST changes: +DOXYCYCL HYC100 MG PO; +Levaquin PO; +PIPERACILLIN IV; +POTASSIMIN75 MG PO; +TAZOBACTAM IV; +VANCOMYCIN1000 MG IV
== END | disposition home or self-care (01) | DRG 639 ==
LOC: LABSPEC 23:58
PROVIDERS: ATTEND Internal Medicine
DX: E11.9 Type 2 diabetes mellitus without complications (principal); I10 Essential (primary) hypertension; Z79.2 Long term (current) use of antibiotics

== ENCOUNTER → 2019-01-23 | Outpatient (REF) | payer OTHER | END | disposition home or self-care (01) | DRG 603 | LOC: LABSPEC 16:10 | PROVIDERS: ATTEND Internal Medicine | DX: L03.90 Cellulitis, unspecified (principal); Z79.2 Long term (current) use of antibiotics ==

== ENCOUNTER → 2019-01-25 | Outpatient (REF) | payer OTHER | END | disposition home or self-care (01) | DRG 603 | LOC: LABSPEC-NH 16:34 | PROVIDERS: ATTEND Internal Medicine | DX: L03.90 Cellulitis, unspecified (principal); Z79.2 Long term (current) use of antibiotics ==

== ENCOUNTER 2019-01-27 15:04 | Inpatient (IN) | payer MEDICARE, OTHER ==
[~2019-01-27] VITALS: Ht 185.4 cm; Wt 98.6 kg
[~2019-01-27 15:04] MED LIST changes: -Levaquin PO; -POTASSIMIN75 MG PO
[2019-01-27 15:28] LABS: GFR > 60 ML/MIN (>=60 (CALC)); GFR FOR AFR.AMER. > 60 ML/MIN (>=60 (CALC))
[2019-01-27] MEDS ORDERED: POTASSIMIN75 MG PO (15:32)
[2019-01-27] MEDS ORDERED: TRESIBA FL200 UNIT/M SC (15:33)
[2019-01-27 15:51] LABS: IMMATURE GRANULOCYTES 0.7 % (0.0-5.0); MEAN CELL VOLUME 92.4 fL CALC (80.0-100.0); MEAN CORPUSCULAR HGB 29.8 pG CALC (26.0-32.0); MEAN CORPUSCULAR HGB CONC 32.3 g/L CALC (32.0-36.0); NEUT# 9.78 thou/uL (1.82-7.42); RED BLOOD COUNT 3.69 mill/uL (4.70-6.10); RED CELL DISTRI WIDTH 13.7 % (11.5-15.5)
[2019-01-27 15:54] LABS: HEMATOCRIT 34.1 % (39.0-50.0)
[2019-01-27 16:00] LABS: ALKALINE PHOSPHATASE 119 u/l (38-126); ANION GAP 17 (6-22 (CALC)); BILIRUBIN, TOTAL 0.9 mg/dL (0.0-1.4); BUN 25 mg/dL (8-23); BUN/CREATININE RATIO 30 (12-20 (CALC)); CARBON DIOXIDE 25 mmol/l (22-30); CHLORIDE 102 mmol/l (95-108); CREATININE 0.8 mg/dL (0.7-1.3); GFR > 60 ML/MIN (>=60 (CALC)); GFR FOR AFR.AMER. > 60 ML/MIN (>=60 (CALC)); POTASSIUM 4.3 mmol/l (3.5-5.1); SODIUM 140 mmol/l (137-146)
[2019-01-27 16:17] LABS: ALBUMIN 3.6 g/dL (3.2-5.0); SGOT/AST 61 u/l (19-48); TOTAL PROTEIN 6.9 g/dL (6.3-8.2)
[2019-01-27 16:28] LABS: INTERNATIONAL NORMALIZED RATIO 1.2 RATIO (0.7-1.3); PROTHROMBIN TIME 12.6 SECONDS (9.0-12.5)
[2019-01-27 22:10] VITALS: BP 144/86
[2019-01-27 22:24] VITALS: BP 138/83
[2019-01-28] VITALS (9 sets, daily range): BP systolic 107–143; BP diastolic 73–88
[2019-01-28 06:14] LABS: HEMATOCRIT 28.6 % (39.0-50.0); HEMOGLOBIN 9.2 g/dl (14.0-18.0); IMMATURE GRANULOCYTES 0.7 % (0.0-5.0); MEAN CELL VOLUME 92.3 fL CALC (80.0-100.0); MEAN CORPUSCULAR HGB 29.7 pG CALC (26.0-32.0); MEAN CORPUSCULAR HGB CONC 32.2 g/L CALC (32.0-36.0); NEUT# 6.02 thou/uL (1.82-7.42); RED BLOOD COUNT 3.1 mill/uL (4.70-6.10); RED CELL DISTRI WIDTH 13.9 % (11.5-15.5)
[2019-01-28 06:30] LABS: ALKALINE PHOSPHATASE 97 u/l (38-126); AMYLASE 97 u/l (30-110); BILIRUBIN, TOTAL 0.7 mg/dL (0.0-1.4); BUN 24 mg/dL (8-23); BUN/CREATININE RATIO 26 (12-20 (CALC)); CARBON DIOXIDE 27 mmol/l (22-30); CHLORIDE 102 mmol/l (95-108); CREATININE 0.9 mg/dL (0.7-1.3); GFR > 60 ML/MIN (>=60 (CALC)); GFR FOR AFR.AMER. > 60 ML/MIN (>=60 (CALC)); LIPASE 534 u/l (23-300); MAGNESIUM 1.4 mg/dL (1.6-2.3); SGOT/AST 25 u/l (19-48); SODIUM 138 mmol/l (137-146)
[2019-01-28 06:41] LABS: ALBUMIN 2.8 g/dL (3.2-5.0); ANION GAP 12 (6-22 (CALC)); POTASSIUM 3.4 mmol/l (3.5-5.1); TOTAL PROTEIN 5.5 g/dL (6.3-8.2)
[2019-01-29 00:29] VITALS: BP 119/76
[2019-01-29 04:25] VITALS: BP 140/88
[2019-01-29 06:12] LABS: HEMATOCRIT 31.4 % (39.0-50.0); HEMOGLOBIN 10.1 g/dl (14.0-18.0); IMMATURE GRANULOCYTES 0.8 % (0.0-5.0); MEAN CELL VOLUME 92.9 fL CALC (80.0-100.0); MEAN CORPUSCULAR HGB 29.9 pG CALC (26.0-32.0); MEAN CORPUSCULAR HGB CONC 32.2 g/L CALC (32.0-36.0); NEUT# 6.77 thou/uL (1.82-7.42); RED BLOOD COUNT 3.38 mill/uL (4.70-6.10); RED CELL DISTRI WIDTH 13.9 % (11.5-15.5)
[2019-01-29 06:19] LABS: ALKALINE PHOSPHATASE 107 u/l (38-126); BILIRUBIN, TOTAL 0.9 mg/dL (0.0-1.4); BUN 22 mg/dL (8-23); BUN/CREATININE RATIO 23 (12-20 (CALC)); CARBON DIOXIDE 30 mmol/l (22-30); CHLORIDE 103 mmol/l (95-108); GFR > 60 ML/MIN (>=60 (CALC)); GFR FOR AFR.AMER. > 60 ML/MIN (>=60 (CALC)); SGOT/AST 22 u/l (19-48); SODIUM 140 mmol/l (137-146)
[2019-01-29 06:22] LABS: ANION GAP 11 (6-22 (CALC)); MAGNESIUM 1.9 mg/dL (1.6-2.3); POTASSIUM 4.3 mmol/l (3.5-5.1)
[2019-01-29 09:07] VITALS: BP 154/94
[2019-01-29 10:58] LABS: CHOLESTEROL HDL RATIO 4.9 (<4.4 (CALC))
[2019-01-29 11:35] VITALS: BP 147/97
[2019-01-29 16:00] VITALS: BP 158/94
[2019-01-29 19:58] VITALS: BP 150/95
[2019-01-30 00:09] VITALS: BP 152/90
[2019-01-30 05:32] LABS: URINE BILIRUBIN - DIPSTICK NEGATIVE (NEGATIVE); URINE BLOOD DIPSTICK NEGATIVE (NEGATIVE); URINE COLOR YELLOW; URINE GLUCOSE - DIPSTICK NEGATIVE (NEGATIVE); URINE KETONE NEGATIVE (NEGATIVE); URINE LEUK ESTERASE NEGATIVE (NEGATIVE); URINE NITRITE - DIPSTICK NEGATIVE (Negative); URINE PROTEIN - DIPSTICK NEGATIVE (NEG-TRACE); URINE SPECIFIC GRAVITY 1.015; URINE UROBILINOGEN - DIPSTICK 0.2 E.U./dL (0.2)
[2019-01-30 05:47] VITALS: BP 150/81
[2019-01-30 06:29] LABS: HEMATOCRIT 34.3 % (39.0-50.0); HEMOGLOBIN 10.9 g/dl (14.0-18.0); IMMATURE GRANULOCYTES 0.7 % (0.0-5.0); MEAN CELL VOLUME 92.7 fL CALC (80.0-100.0); MEAN CORPUSCULAR HGB 29.5 pG CALC (26.0-32.0); MEAN CORPUSCULAR HGB CONC 31.8 g/L CALC (32.0-36.0); NEUT# 7.51 thou/uL (1.82-7.42); RED BLOOD COUNT 3.7 mill/uL (4.70-6.10); RED CELL DISTRI WIDTH 14.1 % (11.5-15.5)
[2019-01-30 06:35] LABS: ANION GAP 15 (6-22 (CALC)); BUN 21 mg/dL (8-23); BUN/CREATININE RATIO 23 (12-20 (CALC)); CARBON DIOXIDE 29 mmol/l (22-30); CHLORIDE 101 mmol/l (95-108); CREATININE 0.9 mg/dL (0.7-1.3); GFR > 60 ML/MIN (>=60 (CALC)); GFR FOR AFR.AMER. > 60 ML/MIN (>=60 (CALC)); MAGNESIUM 1.6 mg/dL (1.6-2.3); POTASSIUM 4.1 mmol/l (3.5-5.1); SODIUM 140 mmol/l (137-146)
[2019-01-30 09:27] VITALS: BP 137/77
[2019-01-30 12:00] VITALS: BP 134/72
[2019-01-30 16:00] VITALS: BP 144/94
[2019-01-30 19:35] VITALS: BP 135/77
[2019-01-31 00:15] VITALS: BP 133/81
[2019-01-31 04:30] VITALS: BP 150/89
[2019-01-31 08:10] VITALS: BP 128/82
[2019-01-31 11:33] VITALS: BP 132/82
[2019-01-31 12:51] LABS: ANION GAP 17 (6-22 (CALC)); BUN 28 mg/dL (8-23); BUN/CREATININE RATIO 24 (12-20 (CALC)); CARBON DIOXIDE 32 mmol/l (22-30); CHLORIDE 93 mmol/l (95-108); CREATININE 1.2 mg/dL (0.7-1.3); GFR 58 ML/MIN (>=60 (CALC)); GFR FOR AFR.AMER. > 60 ML/MIN (>=60 (CALC)); MAGNESIUM 1.4 mg/dL (1.6-2.3); POTASSIUM 3.7 mmol/l (3.5-5.1); SODIUM 138 mmol/l (137-146)
[2019-01-31 15:26] VITALS: BP 129/85
[2019-01-31 18:58] VITALS: BP 110/69
[2019-02-01] VITALS (7 sets, daily range): BP systolic 123–145; BP diastolic 78–93
[2019-02-01 08:15] LABS: ANION GAP 15 (6-22 (CALC)); CARBON DIOXIDE 29 mmol/l (22-30); CHLORIDE 98 mmol/l (95-108); GFR > 60 ML/MIN (>=60 (CALC)); GFR FOR AFR.AMER. > 60 ML/MIN (>=60 (CALC)); MAGNESIUM 1.5 mg/dL (1.6-2.3); POTASSIUM 3.9 mmol/l (3.5-5.1); SODIUM 138 mmol/l (137-146)
[2019-02-01 08:24] LABS: BUN 31 mg/dL (8-23); BUN/CREATININE RATIO 31 (12-20 (CALC))
[2019-02-01] MEDS ORDERED: Levaquin PO (16:05)
== END 2019-02-01 20:40 | DRG 193 ==
LOC: ED 15:04 → ED-I 19:00 → ED 19:09 → ICU 19:19 → MS2 19:19
PROVIDERS: Emergency Medicine; Internal Medicine; Nurse Practitioner Family; ADMIT Internal Medicine Nephrology; ATTEND Internal Medicine Nephrology
DX: J18.9 Pneumonia, unspecified organism (principal); J81.0 Acute pulmonary edema; J44.0 Chronic obstructive pulmonary disease with (acute) lower respiratory infection; J91.8 Pleural effusion in other conditions classified elsewhere; I10 Essential (primary) hypertension; E11.9 Type 2 diabetes mellitus without complications; I25.10 Atherosclerotic heart disease of native coronary artery without angina pectoris; E78.5 Hyperlipidemia, unspecified; N40.0 Benign prostatic hyperplasia without lower urinary tract symptoms; I35.1 Nonrheumatic aortic (valve) insufficiency; M10.061 Idiopathic gout, right knee; M10.071 Idiopathic gout, right ankle and foot; E04.1 Nontoxic single thyroid nodule; Y95 Nosocomial condition; Z79.4 Long term (current) use of insulin; Z79.02 Long term (current) use of antithrombotics/antiplatelets; Z95.5 Presence of coronary angioplasty implant and graft; Z96.652 Presence of left artificial knee joint
CPT/HCPCS: J1650; J3475

== ENCOUNTER → 2019-02-15 | Outpatient (REF) | payer MEDICARE, OTHER ==
[~2019-02-15] MED LIST changes: +Levaquin PO; +POTASSIMIN75 MG PO
== END | disposition home or self-care (01) ==
LOC: DI 10:42
PROVIDERS: ATTEND Orthopaedic Surgery
DX: M25.562 Pain in left knee (principal); Z47.1 Aftercare following joint replacement surgery; Z96.652 Presence of left artificial knee joint